=== PATIENT | male | born 1990 | race African-American/Black ===

== ENCOUNTER 2021-01-19 10:37 | Emergency (ER) | payer BC | END 2021-01-19 12:06 | disposition home or self-care (01) | LOC: CSHERS 10:37 | DX: S92.902A Unspecified fracture of left foot, initial encounter for closed fracture (principal); W22.8XXA Striking against or struck by other objects, initial encounter ==

== ENCOUNTER 2023-07-30 08:18 | Emergency (ER) | payer BC, SELFPAY ==
[2023-07-30 11:27] LABS: SARS-CoV-2 NAA Rapid Test DETECTED (NotDetected)
== END 2023-07-30 12:30 | disposition home or self-care (01) ==
LOC: CSHERS 08:18
DX: U07.1 COVID-19 (principal)
CPT/HCPCS: 99283

== ENCOUNTER 2024-07-28 08:42 | Emergency (ER) | payer OTHER, BC ==
[2024-07-28] MEDS ORDERED: Ibuprofen 200 MG TAB ONE (09:12)
== END 2024-07-28 10:31 | disposition home or self-care (01) ==
LOC: CSHERS 08:42
DX: J06.9 Acute upper respiratory infection, unspecified (principal)
CPT/HCPCS: 87428; 99283